=== PATIENT | female | born 1945 | race Caucasian/White ===

== ENCOUNTER 2023-12-28 23:18 | Emergency (ER) | payer OTHER ==
[~2023-12-28] VITALS: Ht 157.5 cm; Wt 65.0 kg
[2023-12-28 23:33] VITALS: O2SAT 98
[2023-12-29 00:16] LABS: BASOPHILS % 0.6 % (0.0-2.0); EOSINOPHILS % 1.5 % (0.0-5.0); HEMATOCRIT. 39.3 % (36.0-48.0); HEMOGLOBIN. 13.5 g/dL (12.0-16.0); LYMPHOCYTES % 29.4 % (20.0-50.0); MEAN CORPUSCULAR HEMOGLOBIN 30.9 pg (28.0-32.0); MEAN CORPUSCULAR HGB CONC 34.3 g/dL (31.0-37.0); MONOCYTES % 4.1 % (2.0-8.0); NEUTROPHILS % 64.4 % (40.0-76.0); PLATELET 222 x1000/uL (130-400); RED BLOOD CELL COUNT 4.37 mill/uL (4.2-5.4); RED CELL DISTRIBUTION WIDTH 14.8 % (11.6-14.6); WHITE BLOOD COUNT 12.1 x1000/uL (4.5-11.0)
[2023-12-29 00:24] LABS: POTASSIUM 3.2 mEq/L (3.5-5.1)
[2023-12-29] MEDS: SODIUM CHLORIDE 0.9% 1,000 ML IV ONE ×2 (00:28→04:38)
[2023-12-29] MEDS: ONDANSETRON HCL 4MG/2ML INJ IV STA (00:28)
[2023-12-29] MEDS: MORPHINE SULFATE 4 MG/ML INJ (FOR IV/IM USE) IV STA (00:28)
[2023-12-29 00:31] LABS: CREATININE 1.1 mg/dL (0.6-1.0)
[2023-12-29] MEDS: HYDROMORPHONE HCL/PF 2MG/ML INJ IV ONE (01:41)
[2023-12-29] MEDS ORDERED: FENTANYL CITRATE/PF 50MCG/ML 2ML VIAL IV ONE (03:30)
[2023-12-29] MEDS: KETAMINE HCL 50 MG/ML 10ML IV ONE (03:59)
[2023-12-29] MEDS: FENTANYL CITRATE/PF 50MCG/ML 2ML VIAL IV NR (04:06)
[2023-12-29] MEDS ORDERED: ACETAMINOPHEN 325MG TABLET PO PRN (06:00)
[2023-12-29] MEDS ORDERED: DOCUSATE SODIUM 100MG CAPSULE PO PRN (06:00)
[2023-12-29] MEDS ORDERED: IPRATROPIUM/ALBUTEROL 0.5-3(2.5)MG/3ML NEB HHN PRN (06:00)
[2023-12-29] MEDS ORDERED: ONDANSETRON HCL 4MG/2ML INJ IV PRN (06:00)
[2023-12-29] MEDS ORDERED: MORPHINE SULFATE 2 MG/ML INJ (NOT FOR IM USE) IV PRN (06:00)
[2023-12-29] MEDS ORDERED: CLONIDINE 0.1MG TABLET PO PRN (06:00)
[2023-12-29] MEDS ORDERED: GUAIFENESIN 200MG/10ML SUGAR FREE UDC PO PRN (06:00)
[2023-12-29] MEDS ORDERED: MAGNESIUM/ALUMINUM HYDROXIDE/SIMETHICONE 30ML UDC PO PRN (06:00)
[2023-12-29] MEDS ORDERED: NALOXONE HCL 0.4MG/ML VIAL IV PRN (06:15)
[2023-12-29] MEDS: POTASSIUM CHLORIDE 20MEQ/PACKET PO NR (06:20)
[2023-12-29] MEDS: DEXT 5%/0.45% NACL 1000ML 1,000 ML IV ONE (06:27)
[2023-12-29 07:00] VITALS: BP 138/72; PULSE 76; RESP 14; TEMP 37.00296; O2SAT 98
[2023-12-29 07:03] LABS: PHOSPHORUS 3.1 mg/dL (2.5-4.9)
[2023-12-29] MEDS ORDERED: LOSARTAN 25 MG TABLET PO SCH (09:00)
[2023-12-29] MEDS ORDERED: ENOXAPARIN 40MG/0.4ML SYR SUBCUT SCH (09:00)
[2023-12-29] MEDS ORDERED: FAMOTIDINE 20MG TABLET PO SCH (21:00)
== END 2023-12-29 07:27 | disposition short-term general hospital (02) ==
LOC: ER 12-29 00:30 → EDBEDREQ 12-29 05:02 → EDBEDREQTM 12-29 05:02 → ER 12-29 07:27
DX: S72.92XA Unspecified fracture of left femur, initial encounter for closed fracture (principal); M25.552 Pain in left hip; I10 Essential (primary) hypertension; Z88.0 Allergy status to penicillin; W18.39XA Other fall on same level, initial encounter; Y93.89 Activity, other specified; Y92.89 Other specified places as the place of occurrence of the external cause; Y99.8 Other external cause status
CPT/HCPCS: 80048; 85025; 86850; 86900; 86901; 73502; 73552; 83036; 83735; 84100; 36415; 96374; 96375; 99291; J3010; J3490; J2405; J1171; J2270; J7030; Z7610